=== PATIENT | female | born 1960 | race Hispanic/Latino ===

== ENCOUNTER → 2020-03-18 | Day surgery (SDC) | payer OTHER ==
[~2020-03-18] MED LIST: CYCLOBENZAPRINE10 MG PO; CYMBALTA30 MG PO; DEXMEDETOMIDINE HCL 200 MCG/2 ML VIAL ONE; ETOMIDATE 2 MG/ML 10 ML INJ IV ONE; FENTANYL CITRATE/PF 100MCG/2 ML INJ ONE; HYDROXYZINE HCL25 MG PO; HYOSCYAMINE 0.125 MG TAB ONE; LIDOCAINE HCL 2% LOCAL INJ 5 ML SDV VIAL INJ ONE; LIPITOR10 MG PO; LISINOPRIL5 MG PO; METFORMIN HCL500 MG PO; METOCLOPRAMIDE HCL 10 MG/2ML VIAL ONE; MIDAZOLAM HCL 2 MG/2 ML VIAL ONE; OMEPRAZOLE40 MG PO; PANTOPRAZOLE 40 MG 10ML VIAL ONE; PRAMIPEXOLE DIHY1 MG PO; PRECOSE25 MG PO; PROPOFOL IV EMULSION 10 MG/ML 20 ML VIAL ONE
[2020-03-18 10:25] VITALS: BP 111/67
--- NOTE | 2020-03-18 12:54 | Operative Report ---
DATE OF PROCEDURE: 03/18/2020 SURGEON: Allan Crook MD PROCEDURES: EGD with esophageal dilatation, polypectomy and biopsies and colonoscopy with biopsies. INDICATIONS FOR EGD: Dysphagia, nausea. INDICATIONS FOR COLONOSCOPY: Colorectal cancer screening, abdominal pain, chronic diarrhea. MEDICATIONS: The patient was done under MAC, please see anesthesiologist's note. PROCEDURE IN DETAIL: With the patient in the left lateral decubitus position, a flexible fiberoptic Olympus gastroscope was introduced into the esophagus under direct visualization without any difficulty. There was some patchy erythema noted in distal esophagus. The scope was then advanced with ease into the stomach. Mucosa overlying the antrum and the body revealed some patchy intense erythema and low-grade to moderate edema, and biopsies were obtained and sent to stain for H. pylori. Minute hyperplastic-appearing polyps were noted in the body and stomach of the fundus, and some were partially excised with the cold biopsy forceps. Pylorus was of normal contour and shape, was intubated with ease and the scope was advanced all the way to the second portion of the duodenum. Biopsies were obtained from the proximal second portion and duodenal bulb to rule out sprue. The scope was then withdrawn back into the stomach and retroflexed, mucosa overlying the fundus and the cardia grossly appeared to be within normal limits. The scope was then straightened out and it was subsequently withdrawn. The esophagus was then dilated to size 52-[place] Pang. The patient tolerated the procedure well. IMPRESSION: 1. Distal esophagitis, mild. 2. Esophagus dilated to size 52-[place] Pang. 3. Gastritis, biopsied, biopsies sent to stain for Helicobacter pylori. 4. Gastric polyps, minute, hyperplastic-appearing, body and fundus, some partially excised with the cold biopsy forceps. 5. Rule out sprue. PLAN: Follow up histology. Increase omeprazole to 40 mg one p.o. before meals b.i.d. The patient was then turned around and after adequate lubrication of the anal canal, a flexible fiberoptic Olympus colonoscope was inserted into the rectum with ease and advanced all the way to the cecum. Prep overall was suboptimal to poor with scattered retained stools in the colon. There was some moderate amount of retained stools in the cecum, which was suboptimally visualized. However, whatever was visualized, the mucosa appeared to be within normal limits. Whatever was visualized the mucosa of the ascending, transverse, descending, sigmoid, and rectum revealed some patchy mild inflammatory changes mainly in the left colon and random biopsies were obtained. The scope was then retroflexed into the distal rectum and the area around the dentate line grossly appeared to be within normal limits. The scope was then straightened out and it was subsequently withdrawn after securing an adequate stool specimen that was sent for the appropriate stool studies. The patient tolerated the procedure well. IMPRESSION: 1. Suboptimal to poor prep with retained stools in colon. 2. Mild patchy colitis, primarily left colon with random biopsies obtained. 3. Proctitis, mild. PLAN: Follow up histology. Follow up stool studies. Initiate Bentyl 20 mg one p.o. t.i.d. VSL#3 one p.o. b.i.d. The patient might benefit from a repeat colonoscopy after a better prep later this year. Allan Crook MD [facility] [place] /[id number] cc: Dr. Ender Mendoza
[2020-03-18 15:11] LABS: C DIFFICILE TOXIN A&B AMP PROB NEGATIVE (NEGATIVE); WBC,FECAL (FECAL LACTOFERRIN) NEGATIVE (NEGATIVE)
== END | disposition home or self-care (01) ==
LOC: OR 05:55
PROVIDERS: ATTEND Internal Medicine Gastroenterology
DX: K29.70 Gastritis, unspecified, without bleeding (principal); K31.7 Polyp of stomach and duodenum; K20.9 Esophagitis, unspecified; K59.00 Constipation, unspecified; K52.9 Noninfective gastroenteritis and colitis, unspecified; K62.89 Other specified diseases of anus and rectum; E11.9 Type 2 diabetes mellitus without complications; I10 Essential (primary) hypertension; E78.00 Pure hypercholesterolemia, unspecified; E03.9 Hypothyroidism, unspecified; Z01.810 Encounter for preprocedural cardiovascular examination; Z01.812 Encounter for preprocedural laboratory examination; Z11.59 Encounter for screening for other viral diseases; Z79.84 Long term (current) use of oral hypoglycemic drugs; Z68.25 Body mass index [BMI] 25.0-25.9, adult
CPT/HCPCS: 36415; 43239; 43450; 45380; 82948; 83630; 83993; 87045; 87177; 87328; 87493; 87635; 93005; C9113; J2001; J2250; J2704; J2765; J3010; 45378